=== PATIENT | female | born 1970 | race Caucasian/White ===

== ENCOUNTER 2023-03-11 15:55 | Emergency (ER) | payer BC, OTHER ==
[2023-03-11] MEDS ORDERED: predniSONE 50 MG TABLET ONE (16:05)
[2023-03-11] MEDS ORDERED: EPINEPHRINE 1 MG/1 ML AMP ONE (16:06)
[2023-03-11] MEDS ORDERED: diphenhydrAMINE 50 MG CAPSULE ONE (16:06)
[2023-03-11] MEDS ORDERED: predniSONE 10 MG TABLET ONE (16:06)
[2023-03-11] MEDS ORDERED: FAMOTIDINE 20 MG TABLET ONE (16:06)
[2023-03-11] MEDS ORDERED: HYDROCODONE/APAP 5-325MG TABLET ONE (16:08)
[2023-03-11] MEDS ORDERED: predniSONE 10 MG TABLET PO ONE (16:15)
[2023-03-11] MEDS ORDERED: FAMOTIDINE 20 MG TABLET PO ONE (16:15)
[2023-03-11] MEDS ORDERED: HYDROCODONE/APAP 5-325MG TABLET PO ONE (16:15)
[2023-03-11] MEDS ORDERED: diphenhydrAMINE 50 MG CAPSULE PO ONE (16:15)
[2023-03-11] MEDS ORDERED: EPINEPHRINE 1 MG/1 ML AMP SQ ONE (16:15)
[2023-03-11 16:17] VITALS: BP 147/99
[2023-03-11] MEDS ORDERED: PRED20TA PO (17:36)
[2023-03-11] MEDS ORDERED: CEPH500C2 PO (17:36)
[2023-03-11] MEDS ORDERED: DIPH25CA83 PO (17:36)
[2023-03-11] MEDS ORDERED: IBUP-1955 PO (17:36)
[2023-03-11] MEDS ORDERED: FAMO-132 PO (17:36)
[2023-03-11] MEDS ORDERED: KETOROLAC TROMETHAMINE 15 MG INJ IM ONE (17:45)
[2023-03-11] MEDS ORDERED: KETOROLAC TROMETHAMINE 15 MG INJ ONE (17:53)
== END 2023-03-11 18:48 | disposition home or self-care (01) ==
LOC: ER 15:55
DX: T63.441A Toxic effect of venom of bees, accidental (unintentional), initial encounter (principal); Z79.1 Long term (current) use of non-steroidal anti-inflammatories (NSAID); Z79.899 Other long term (current) drug therapy; Y92.89 Other specified places as the place of occurrence of the external cause
CPT/HCPCS: 99284; 96372 ×2; Q0163; J7512 ×2; J0171; J1885; A4663